=== PATIENT | male | born 1995 | race African-American/Black ===

== ENCOUNTER 2021-08-13 08:52 | Emergency (ER) | payer SELFPAY ==
[~2021-08-13] VITALS: Ht 188 cm; Wt 111.0 kg
[~2021-08-13 08:52] MED LIST: SERT-158 PO
[2021-08-13 11:11] VITALS: BP 122/76
== END 2021-08-13 12:06 | disposition home or self-care (01) ==
LOC: EMS 08:52
DX: M25.532 Pain in left wrist (principal); F12.90 Cannabis use, unspecified, uncomplicated; Z79.899 Other long term (current) drug therapy; V49.49XA Driver injured in collision with other motor vehicles in traffic accident, initial encounter; Y93.89 Activity, other specified; Y92.89 Other specified places as the place of occurrence of the external cause; Y99.8 Other external cause status
CPT/HCPCS: 99284